=== PATIENT | female | born 1995 | race African-American/Black ===

== ENCOUNTER 2017-01-11 09:11 | Emergency (ER) | payer MEDICAID ==
[2017-01-11 11:01] VITALS: BP 114/78
== END 2017-01-11 10:59 | disposition home or self-care (01) ==
LOC: ED 09:11
DX: J32.9 Chronic sinusitis, unspecified (principal)
CPT/HCPCS: 99282

== ENCOUNTER 2017-07-05 17:38 | Emergency (ER) | payer OTHER ==
[2017-07-05 17:46] VITALS: BP 109/64
--- NOTE | 2017-07-05 18:43 | UC ---
Jarod Dash SooYoung, scribed for Onel Oneal MD on 07/05/17 at 1817 . Complaint Female HPI - HPI Summary HPI Summary: A 21 y/o F presents to [facility] for vaginal bleeding for past week. Initially it was brown, but she states last night it became bright red, and is still present when she last checked an hour ago. Pert PMHx: positive test at [facility] on 06/13, and an ultrasound on 06/20. [facility]: 05/06. She believes she's about 6 weeks . She is taking Fe pills but not pre- vitamins. Denies dizziness, lightheadedness, dysuria, frequency, back pain. She states not having pain previously, but is currently stating mild abd pain at bedside. Bleeding did not soak one pad today. 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 . Delivered at [facility] [place]. - History Of Current Complaint Chief Complaint: UCGU Stated Complaint: PERSONAL Time Seen by Provider: 07/05/17 18:06 Hx Obtained From: Patient ?: Yes Onset/Duration: Lasting Weeks - one week, Still Present Severity Currently: Mild Associated Signs And Symptoms: Positive: Vaginal Bleeding/Discharge Related Hx: - 2, Para - 1 - Allergies/Home Medications Allergies/Adverse Reactions: Allergies Allergy/AdvReac Type Severity Reaction Status Date / Time ENVIRONMENTAL Allergy Mild Congestion Uncoded 12/18/12 06:52 Home Medications: Home Medications Ferrous Sulfate [Fe Tabs] 325 mg PO 07/05/17 [History] PMH/Surg Hx/FS Hx/Imm Hx Previously Healthy: Yes Cardiovascular History: Other Other Cardiovascular History: palpitations Respiratory History: Other Other Respiratory History: neg: asthma - Surgical History Surgical History: None - Family History Known Family History: Positive: Other - neg: anaesthesia reaction - Social History Occupation: Employed Full-time Lives: With Family Alcohol Use: Rare Substance Use Type: Marijuana Substance Use Comment - Amount & Last Used: occasional Smoking Status (MU): Never Smoked Tobacco Review of Systems Constitutional: Negative Skin: Negative Eyes: Negative ENT: Negative Respiratory: Negative Cardiovascular: Negative Gastrointestinal: Abdominal Pain Genitourinary: Other - pos: vaginal bleeding; Motor: Negative Neurovascular: Negative Musculoskeletal: Negative Neurological: Negative Psychological: Negative All Other Systems Reviewed And Are Negative: Yes Physical Exam Triage Information Reviewed: Yes Vital Signs: Initial Vital Signs Temp 98.8 F 07/05/17 17:41 Pulse 79 07/05/17 17:41 Resp 18 07/05/17 17:41 BP 109/64 07/05/17 17:41 Pulse Ox 100 07/05/17 17:41 Vital Signs Reviewed: Yes - Additional Comments The patient is well-nourished in no acute distress and in no acute pain. The skin is warm and dry and skin color reflects adequate perfusion. HEENT: The head is normocephalic and atraumatic. The pupils are equal and reactive. The conjunctivae are clear and without drainage. Nares are patent and without drainage. Mouth reveals moist mucous membranes and the throat is without erythema and exudate. The external ears are intact. The ear canals are patent and without drainage. The tympanic membranes are intact. Neck is supple with full range of motion and non-tender. No adenopathy. There are no carotid bruits. There is no neck vein distension. Respiratory: Chest is non-tender. Lungs are clear to auscultation and breath sounds are symmetrical and equal. Cardiovascular: Heart is regular rate and rhythm. There is no murmur or rub auscultated. There is no peripheral edema and pulses are symmetrical and equal. Abdomen: The abdomen is soft and non-tender. No reproducible pain. No CVA tenderness. There are normal bowel sounds heard in all four quadrants and there is no organomegaly palpated. Musculoskeletal: There is no back pain noted. Extremities are non-tender with full range of motion. There is good capillary refill. There is no peripheral edema or calf tenderness elicited. Neurological: Patient is alert and oriented to person, place and time. The patient has symmetrical motor strength in all four extremities. Cranial nerves are grossly intact. Deep tendon reflexes are symmetrical and equal in all four extremities. Psychiatric: The patient has an appropriate affect and does not exhibit any anxiety or depression. Complaint Female Dx - Course Course Of Treatment: Medications reviewed. Blood pressure is within normal limits, no f/u instructions required. Blood type is A+. Discussed with pt the need for further evaluation at ED due to limited testing available at [facility]. Pt voiced understanding. - Differential Dx/Diagnosis Differential Diagnosis/HQI/PQRI: , Other - threatened miscarriage, first trimester bleeding Provider Diagnoses: 1. . 2. Vaginal bleeding. 3. Threatened miscarriage Discharge - Discharge Plan Condition: Stable Disposition: HOME Patient Education Materials: Threatened Miscarriage (ED), (ED) Referrals: Valerio Francisco MD [Primary Care Provider] - Additional Instructions: Follow up at the Emergency Department. The documentation as recorded by the Jarod zamudio SooYoung accurately reflects the service I personally performed and the decisions made by me, Onel Oneal MD.
== END 2017-07-05 18:20 | disposition home or self-care (01) ==
LOC: UCEAST 17:38
DX: O20.0 Threatened abortion (principal); Z3A.01 Less than 8 weeks gestation of pregnancy
CPT/HCPCS: 99212; G0463

== ENCOUNTER 2017-07-05 18:37 | Emergency (ER) | payer OTHER ==
[2017-07-05 19:47] LABS: Hematocrit 35 % (35-47); Hemoglobin 11.6 g/dl (12.0-16.0); Mean Corpuscular HGB Conc 34 g/dl (31-36); Mean Corpuscular Hemoglobin 29 pg (27-31); Mean Corpuscular Volume 85 fL (80-97); Mean Platelet Volume 7 um3 (7.4-10.4); Red Blood Count 4.06 10^6/ul (4.0-5.4); Red Cell Distribution Width 15 % (10.5-15); White Blood Count 7.8 10^3/ul (3.5-10.8)
[2017-07-05 20:03] LABS: Albumin 4.2 g/dL (3.2-5.2); BUN/Creatinine Ratio 18.6 (8-20); Calcium 9.3 mg/dL (8.6-10.3); EGFR African American 134.6 (>60); EGFR Non-African American 104.6 (>60); Potassium 3.7 mmol/L (3.5-5.0); Total Bilirubin 0.2 mg/dL (0.2-1.0); Total Protein 7.2 g/dL (6.4-8.9)
--- NOTE | 2017-07-05 20:09 | ED ---
- HPI Summary HPI Summary: 21F at 6 weeks LMP 05/06 presents with vaginal spotting since last night. States has been having brown discharge for a week. She had ultrasound on . She denies dizziness, lightheadedness, dysuria, frequency, back pain, n/v/d /c. she has abdominal cramping that started today that is mild. She has not taken anything for pain. She has sickle cell trait. She denies any history of STDs. She does not have an obgyn currently. - History of Current Complaint Chief Complaint: EDVaginalBleeding Stated Complaint: 6 WKS PREG/CRAMPING AND BLEEDING Time Seen by Provider: 07/05/17 19:13 Pain Intensity: 5 - Assessment Hx Now: Yes Hx Hysterectomy: No - Allergies/Home Medications Allergies/Adverse Reactions: Allergies Allergy/AdvReac Type Severity Reaction Status Date / Time ENVIRONMENTAL Allergy Mild Congestion Uncoded 12/18/12 06:52 PMH/Surg Hx/FS Hx/Imm Hx Endocrine/Hematology History: Reports: Hx Sickle Cell Disease - SICKLE CELL TRAIT Respiratory History: Denies: Hx Asthma, Hx Pneumonia, Hx Seasonal Allergies Sensory History: Denies: Hx Contacts or Glasses, Hx Hearing Aid Opthamlomology History: Denies: Hx Contacts or Glasses - Immunization History Date of Tetanus Vaccine: UNKNOWN Date of Influenza Vaccine: NO Infectious Disease History: No Infectious Disease History: Denies: Traveled Outside the [place] in Last 30 Days - Family History Known Family History: Positive: None, Blood Disorder - sickle cell trait - Social History Alcohol Use: Rare Hx Substance Use: Yes Substance Use Type: Reports: Marijuana Substance Use Comment - Amount & Last Used: occasional Hx Tobacco Use: No Smoking Status (MU): Never Smoked Tobacco Review of Systems Negative: Fever Negative: Chest Pain Negative: Shortness Of Breath Positive: Other - vaginal bleeding All Other Systems Reviewed And Are Negative: Yes Physical Exam - Physical Exam Triage Information Reviewed: Yes Vital Signs Reviewed: Yes Appearance: Positive: Well-Appearing Skin: Positive: Warm, Dry Head/Face: Positive: Normal Head/Face Inspection Eyes: Positive: Normal, EOMI, MARTELL, Conjunctiva Clear ENT: Positive: Normal ENT inspection, Pharynx normal, TMs normal Respiratory/Lung Sounds: Positive: Clear to Auscultation, Breath Sounds Present Cardiovascular: Positive: Normal, RRR Abdomen Description: Positive: Nontender, Soft Bowel Sounds: Positive: Present Diagnostics - Vital Signs Vital Signs Temp Pulse Resp BP Pulse Ox 07/05/17 19:43 98.2 F 92 20 125/79 99 07/05/17 18:42 98.2 F 92 20 125/79 100 - Laboratory Lab Results: Lab Results 07/05/17 07/05/17 07/05/17 Range/Units 19:39 19:39 19:39 WBC 7.8 (3.5-10.8) 10^3/ul RBC 4.06 (4.0-5.4) 10^6/ul Hgb 11.6 L (12.0-16.0) g/dl Hct 35 (35-47) % MCV 85 (80-97) fL MCH 29 (27-31) pg MCHC 34 (31-36) g/dl RDW 15 (10.5-15) % Plt Count 322 (150-450) 10^3/ul MPV 7 L (7.4-10.4) um3 Neut % (Auto) 69.5 (38-83) % Lymph % (Auto) 18.3 L (25-47) % [place] % (Auto) 9.1 H (1-9) % Eos % (Auto) 1.7 (0-6) % Baso % (Auto) 1.4 (0-2) % Absolute Neuts (auto) 5.4 (1.5-7.7) 10^3/ul Absolute Lymphs (auto) 1.4 (1.0-4.8) 10^3/ul Absolute Monos (auto) 0.7 (0-0.8) 10^3/ul Absolute Eos (auto) 0.1 (0-0.6) 10^3/ul Absolute Basos (auto) 0.1 (0-0.2) 10^3/ul Absolute Nucleated RBC 0 10^3/ul Nucleated RBC % 0 INR (Anticoag Therapy) 0.99 (0.89-1.11) APTT 30.1 (26.0-36.3) seconds Sodium 133 (133-145) mmol/L Potassium 3.7 (3.5-5.0) mmol/L Chloride 103 (101-111) mmol/L Carbon Dioxide 25 (22-32) mmol/L Anion Gap 5 (2-11) mmol/L BUN 13 (6-24) mg/dL Creatinine 0.70 (0.51-0.95) mg/dL Est GFR ( Amer) 134.6 (>60) Est GFR (Non-Af Amer) 104.6 (>60) BUN/Creatinine Ratio 18.6 (8-20) Glucose 79 (70-100) mg/dL Calcium 9.3 (8.6-10.3) mg/dL Total Bilirubin 0.20 (0.2-1.0) mg/dL AST 12 L (13-39) U/L ALT 7 (7-52) U/L Alkaline Phosphatase 36 (34-104) U/L Total Protein 7.2 (6.4-8.9) g/dL Albumin 4.2 (3.2-5.2) g/dL Globulin 3.0 (2-4) g/dL Albumin/Globulin Ratio 1.4 (1-3) Beta HCG, Quant Pending Result Diagrams: 07/05/17 19:39 07/05/17 19:39 Lab Statement: Any lab studies that have been ordered have been reviewed, and results considered in the medical decision making process. - Ultrasound No standard instances Ultrasound Interpretation: Positive (See Comments) - IMPRESSION: Empty gestational sac with no evidence of pole likely representing a blighted. Ultrasound Interpretation Completed By: Radiologist Course/Dx - Course Course Of Treatment: 21F at 6 weeks LMP 05/06 presents with vaginal spotting since last night. States has been having brown discharge for a week. She had ultrasound on 06/20. She denies dizziness, lightheadedness, dysuria, frequency, back pain, n/v/d/c. she has abdominal cramping that started today that is mild. She has not taken anything for pain. She has sickle cell trait. She denies any history of STDs. on exam abd nontender. u/s shows no pole so likely miscarriage. told to patient to follow up with obgyn. patient advised to return if develops fever. patient understands and agrees with plan. - Differential Diagnosis/HQI/PQRI: Incomplete , Spontaneous , Threatened - Diagnoses Provider Diagnoses: Vaginal bleeding, Blighted ovum Discharge - Discharge Plan Condition: Good Disposition: HOME Patient Education Materials: Miscarriage (ED) Forms: *Work Release Referrals: Valerio Francisco MD [Primary Care Provider] - Sirisha Colón MD [Medical Doctor] - Additional Instructions: U/S shows no pole so likely having a miscarriage, will continue to bleed Follow up with obgyn as soon as possible Return to ED if develop any new or worsening symptoms
--- NOTE | 2017-07-05 21:39 | RAD ---
Indication: Vaginal bleeding. Real-time sonography of the was performed. There is no evidence of a pole. There is an intrauterine gestational sac measuring 16 mm corresponding to gestational age of 6 weeks 3 days. The right ovary measures 4.7 x 1.1 x 2.6 cm. Left ovary measures 2.7 x 1.8 x 4.6 cm. IMPRESSION: Empty gestational sac with no evidence of pole likely representing a blighted.
[2017-07-05 21:58] LABS: Urine Bacteria Absent (Absent); Urine Bilirubin Negative (Negative); Urine Glucose Negative (Negative); Urine Nitrite Negative (Negative)
[2017-07-05 22:09] VITALS: BP 123/71
== END 2017-07-05 22:08 | disposition home or self-care (01) ==
LOC: ED 18:37
DX: O46.91 Antepartum hemorrhage, unspecified, first trimester (principal); O02.0 Blighted ovum and nonhydatidiform mole; Z3A.01 Less than 8 weeks gestation of pregnancy
CPT/HCPCS: 36415; 76817; 80053; 81003; 81015; 84702; 85025; 85610; 85730; 99282

== ENCOUNTER 2017-09-20 16:50 | Emergency (ER) | payer OTHER ==
[2017-09-20 17:20] VITALS: BP 111/65
--- NOTE | 2017-09-20 17:38 | UC ---
Respiratory Complaint HPI - HPI Summary HPI Summary: 3 DAYS OF COUGH, CONGESTION, ST, RIGHT EAR PRESSURE. ST SINCE LAST NIGHT. NO FEVER. HAS THROBBING RIGHT SIDED LUNA WITH PHOTOPHOBIA AND MILD NAUSEA. - History of Current Complaint Chief Complaint: UCGeneralIllness Stated Complaint: COLD Time Seen by Provider: 09/20/17 17:10 Hx Obtained From: Patient Hx Last Menstrual Period: 08/25/17 Onset/Duration: Gradual Onset, Lasting Days, Still Present Timing: Constant Severity Initially: Moderate Severity Currently: Moderate Pain Intensity: 7 Pain Scale Used: 0-10 Numeric Character: Cough: Nonproductive Aggravating Factors: Nothing Alleviating Factors: Nothing Associated Signs And Symptoms: Positive: URI, Nasal Congestion, Hoarseness. Negative: Dyspnea, Fever, Chills, Pleuritic Chest Pain, Wheezing, Hemoptysis - Allergies/Home Medications Allergies/Adverse Reactions: Allergies Allergy/AdvReac Type Severity Reaction Status Date / Time ENVIRONMENTAL Allergy Mild Congestion Uncoded 09/20/17 17:20 PMH/Surg Hx/FS Hx/Imm Hx Neurological History: Migraine - Surgical History Surgical History: Yes Surgery Procedure, Year, and Place: back surgery, hernia repair. - Family History Known Family History: Positive: Blood Disorder - sickle cell trait Negative: Hypertension - Social History Alcohol Use: Rare Substance Use Type: Marijuana Substance Use Comment - Amount & Last Used: occasional Smoking Status (MU): Never Smoked Tobacco Review of Systems Constitutional: Negative ENT: Sore Throat, Ear Ache, Nasal Discharge Respiratory: Cough Cardiovascular: Negative Gastrointestinal: Nausea Neurological: Headache All Other Systems Reviewed And Are Negative: Yes Physical Exam Triage Information Reviewed: Yes Appearance: Well-Appearing, No Pain Distress, Well-Nourished Vital Signs: Initial Vital Signs Temp 97.9 F 09/20/17 17:16 Pulse 91 09/20/17 17:16 Resp 18 09/20/17 17:16 BP 111/65 09/20/17 17:16 Pulse Ox 100 09/20/17 17:16 Vital Signs Reviewed: Yes Eyes: Positive: Conjunctiva Clear ENT: Positive: Hearing grossly normal, Pharynx normal, TMs normal Neck: Positive: Supple, Nontender, No Lymphadenopathy Respiratory Exam: Normal Cardiovascular Exam: Normal Abdomen Description: Positive: Soft Musculoskeletal: Positive: No Edema Neurological: Positive: Alert Psychological: Positive: Age Appropriate Behavior Skin: Negative: rashes UC Diagnostic Evaluation - Laboratory O2 Sat by Pulse Oximetry: 100 Respiratory Course/Dx - Differential Dx/Diagnosis Provider Diagnoses: 1. ACUTE URI. 2. MIGRAINE Discharge - Discharge Plan Condition: Stable Disposition: HOME Prescriptions: Ibuprofen TAB* [Motrin TAB* 800 MG] 800 mg PO Q8H PRN #30 tab PRN Reason: Pain Patient Education Materials: Migraine Headache (ED), Upper Respiratory Infection (ED) Referrals: Valerio Francisco MD [Primary Care Provider] - If Needed Additional Instructions: YOUR SYMPTOMS ARE LIKELY VIRALLY MEDIATED AND SHOULD RESOLVE ON THEIR OWN WITH TIME. REST, HYDRATE, ERX FOR IBUPROFEN SENT TO [facility]. SEEK FOLLOW-UP IF YOU ARE NOT IMPROVING OVER THE NEXT 1-2 WEEKS.
== END 2017-09-20 18:27 | disposition home or self-care (01) ==
LOC: UCEAST 16:50
DX: J06.9 Acute upper respiratory infection, unspecified (principal); G43.909 Migraine, unspecified, not intractable, without status migrainosus
CPT/HCPCS: 99212; G0463

== ENCOUNTER 2018-05-14 15:13 | Emergency (ER) | payer OTHER ==
[2018-05-14 15:31] VITALS: BP 116/82
--- NOTE | 2018-05-14 15:36 | UC ---
Back Pain HPI - HPI Summary HPI Summary: Patient with history of scoliosis presents with increasing left low back pain over the past 2 weeks. No acute injury. No loss of bowel or bladder control. No saddle anesthesia. - History of Current Complaint Chief Complaint: UCBackPain Stated Complaint: BACK PAIN Time Seen by Provider: 05/14/18 15:31 Hx Obtained From: Patient Hx Last Menstrual Period: 04/12/18 Onset/Duration: Gradual Onset, Lasting Weeks, Still Present Timing: Constant Severity Initially: Moderate Severity Currently: Moderate Pain Intensity: 10 - WALKED INTO ROOM AND IS SITTING IN NO DISTRESS Pain Scale Used: 0-10 Numeric Character: Sharp Aggravating Factor(s): Movement Alleviating Factor(s): Rest Associated Signs And Symptoms: Negative: Swelling, Redness, Bruising, Weakness, Numbness, Tingling, Bladder Incontinence, Bowel Incontinence - Allergies/Home Medications Allergies/Adverse Reactions: Allergies Allergy/AdvReac Type Severity Reaction Status Date / Time ENVIRONMENTAL Allergy Mild Congestion Uncoded 05/14/18 15:28 PMH/Surg Hx/FS Hx/Imm Hx - Additional Past Medical History Additional PMH: SCOLIOSIS Neurological History: Migraine - Surgical History Surgical History: Yes Surgery Procedure, Year, and Place: back surgery, hernia repair. - Family History Known Family History: Positive: Blood Disorder - sickle cell trait Negative: Hypertension - Social History Alcohol Use: Occasionally Substance Use Type: Marijuana Substance Use Comment - Amount & Last Used: occasional Smoking Status (MU): Former Smoker Review of Systems Constitutional: Negative Skin: Negative Respiratory: Negative Cardiovascular: Negative Gastrointestinal: Negative Musculoskeletal: Arthralgia, Myalgia All Other Systems Reviewed And Are Negative: Yes Physical Exam Triage Information Reviewed: Yes Appearance: Well-Appearing, No Pain Distress, Well-Nourished Vital Signs: Initial Vital Signs Temp 98.4 F 05/14/18 15:23 Pulse 77 05/14/18 15:23 Resp 18 05/14/18 15:23 BP 116/82 05/14/18 15:23 Pulse Ox 98 05/14/18 15:23 Vital Signs Reviewed: Yes Eyes: Positive: Conjunctiva Clear ENT: Positive: Hearing grossly normal - [employer] account number over the phone as opposed to alleviate used to write that on and the person's name is indicated exhibit is adding that you have to verbally stated account number White acute symptoms Neck: Positive: Supple Respiratory: Positive: No respiratory distress, No accessory muscle use Cardiovascular: Positive: Pulses Normal Abdomen Description: Positive: Soft Musculoskeletal: Positive: ROM Intact, No Edema, Other: - MILDLY TENDER LEFT LUMBAR PARASPINOUS MUSCLES Neurological: Positive: Alert Psychological: Positive: Age Appropriate Behavior Skin: Negative: rashes Back Pain Course/Dx - Differential Dx/Diagnosis Provider Diagnoses: ACUTE LOW BACK STRAIN Discharge - Sign-Out/Discharge Documenting (check all that apply): Patient Departure - Discharge Plan Condition: Stable Disposition: HOME Prescriptions: Cyclobenzaprine TAB* [Flexeril TAB*] 10 mg PO BID PRN #30 tab PRN Reason: Pain Naproxen [Naproxen EC] 500 mg PO BID PRN #30 tab PRN Reason: Pain Patient Education Materials: Low Back Strain (ED) Referrals: Valerio Francisco MD [Primary Care Provider] - If Needed Additional Instructions: YOU NEED TO FOLLOW-UP WITH A PCP OR WITH THE [facility]INE [facility] FOR RE-EVALUATION OF YOUR SCOLIOSIS. BE SURE TO GO THROUGH SLOW RANGE OF MOTION AND STRETCHING EXERCISES DAILY YOU ARE ABLE TO PREVENT STIFFENING UP AND MAKING THE DISCOMFORT WORSE. [facility] [address] [place], [place] [id number] CALL THE NUMBER BELOW FOR ASSISTANCE IN ESTABLISHING WITH A PCP An additional resource available to assist in finding the appropriate physician for your health care needs is the [facility]erral [facility] ([facility]). You may contact them by calling [phone]. GO TO THE ED WITHOUT FAIL IF YOU DEVELOP WORSENING PAIN, NUMBNESS, TINGLING, LOSS OF BOWEL/BLADDER CONTROL OR ANY OTHER CONCERNING SYMPTOMS. - Billing Disposition and Condition Condition: STABLE Disposition: Home
== END 2018-05-14 16:05 | disposition home or self-care (01) ==
LOC: UCEAST 15:13
DX: S39.012A Strain of muscle, fascia and tendon of lower back, initial encounter (principal); Z91.09 Other allergy status, other than to drugs and biological substances; Z87.898 Personal history of other specified conditions; Z87.891 Personal history of nicotine dependence; X58.XXXA Exposure to other specified factors, initial encounter; Y92.9 Unspecified place or not applicable
CPT/HCPCS: 81003; 99212; G0463

== ENCOUNTER 2018-11-24 10:49 | Emergency (ER) | payer OTHER ==
[2018-11-24 10:58] VITALS: BP 110/74
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
== END 2018-11-24 12:15 | disposition home or self-care (01) ==
LOC: UCEAST 10:49
DX: S09.92XA Unspecified injury of nose, initial encounter (principal); W50.0XXA Accidental hit or strike by another person, initial encounter; Y92.9 Unspecified place or not applicable; Z87.891 Personal history of nicotine dependence
CPT/HCPCS: 70160; 99212; G0463

== ENCOUNTER 2019-10-06 14:32 | Emergency (ER) | payer OTHER ==
[2019-10-06 15:15] VITALS: BP 103/71
--- NOTE | 2019-10-06 16:28 | UC ---
Back Pain HPI - HPI Summary HPI Summary: Patient is a 23-year-old female presenting with mid back pain since last night after she was cleaning at work and believes she strained her back. Denies direct injury or trauma. Patient does note that she has a history of scoliosis since childhood and has chronic back pain. States that pain is worse now and feels very tight. States worse with movement and walking and better with lying down. Denies numbness and tingling. Denies radiating pain. Denies incontinence. Patient states she was in PT earlier this year for her back pain from scoliosis but the pain never fully resolved. States that she was given order for outpatient back x-ray one month ago by her primary care but never followed up on it. Patient also states that she took a muscle relaxant last night that put her to sleep but did not seem to help much with the pain overall. - History of Current Complaint Chief Complaint: UCBackPain Stated Complaint: BACKPAIN Hx Obtained From: Patient Hx Last Menstrual Period: 09/12/2019 Onset/Duration: Sudden Onset Timing: Constant Severity Currently: Severe Pain Intensity: 10 Pain Scale Used: 0-10 Numeric - Allergies/Home Medications Allergies/Adverse Reactions: Allergies Allergy/AdvReac Type Severity Reaction Status Date / Time ENVIRONMENTAL Allergy Mild Congestion Uncoded 10/06/19 15:08 Home Medications: Home Medications Cyclobenzaprine (NF) [Cyclobenzaprine 5 MG (NF)] 5 mg PO TID PRN 10/06/19 [ History Confirmed 10/06/19] Meloxicam [Mobic] 7.5 mg PO BID 10/06/19 [History Confirmed 10/06/19] PMH/Surg Hx/FS Hx/Imm Hx - Surgical History Surgical History: Yes Surgery Procedure, Year, and Place: hernia repair. surgery to neck s/p wound - Family History Known Family History: Positive: Blood Disorder - sickle cell trait , Non- Contributory Negative: Hypertension - Social History Occupation: Employed Full-time Alcohol Use: Occasionally Substance Use Type: Marijuana Substance Use Comment - Amount & Last Used: occasional Smoking Status (MU): Former Smoker Review of Systems All Other Systems Reviewed And Are Negative: Yes Constitutional: Positive: Negative Respiratory: Positive: Negative Cardiovascular: Positive: Negative Gastrointestinal: Positive: Negative Motor: Positive: Negative. Negative: Decreased ROM, Weakness Musculoskeletal: Positive: Arthralgia - mid back pain, Myalgia - muscle tightness in back. Negative: Decreased ROM, Edema Neurological: Negative: Paresthesia, Numbness Physical Exam Triage Information Reviewed: Yes Appearance: Well-Appearing, No Pain Distress, Well-Nourished Vital Signs: Initial Vital Signs Temp 99.2 F 10/06/19 15:10 Pulse 51 10/06/19 15:10 Resp 18 10/06/19 15:10 BP 103/71 10/06/19 15:10 Pulse Ox 99 10/06/19 15:10 Vital Signs Reviewed: Yes Eyes: Positive: Conjunctiva Clear ENT: Positive: Hearing grossly normal Neck exam: Normal Neck: Positive: Supple, Nontender Respiratory Exam: Normal Respiratory: Positive: Lungs clear, Normal breath sounds, No respiratory distress, No accessory muscle use Cardiovascular Exam: Normal Cardiovascular: Positive: RRR Musculoskeletal: Positive: Strength Intact, ROM Intact, No Edema, Other: - tenderness to palpation of paraspinous muscles of thoracic back. slower gait, but normal Neurological Exam: Other - Sensation grossly intact Neurological: Positive: Alert Psychological: Positive: Age Appropriate Behavior Skin Exam: Normal - no erythema or ecchymosis Diagnostics - Radiology T spine Radiology Interpretation Completed By: Radiologist Summary of Radiographic Findings: Report: 23 degrees Jhaveri angle RIGHT convex curve is measured between T9 and L3. Reversal of the curve extending proximal. Negative for spondylolisthesis at any level. Negative for fracture or focal osseous lesions. Clear visualized lungs and pleural spaces. The heart, pulmonary vasculature, and mediastinal contours are unremarkable. IMPRESSION: # . No significant change in magnitude of thoracolumbar dextroscoliosis. No acute abnormality evident. Back Pain Course/Dx - Course Course Of Treatment: Discussed no acute findings on x-ray with patient. Discussed probable back strain and to continue with symptomatic treatment including use of her prescribed Flexeril. Instructed to follow up with PCP if pain persists as it may be more related to her scoliosis. Instructed to go to ED with new or worsening symptoms. Patient voiced understanding and agreed with treatment plan. - Differential Dx/Diagnosis Differential Diagnosis/HQI/PQRI: Herniated Disc Provider Diagnosis: Strain of thoracic back region Discharge ED - Sign-Out/Discharge Documenting (check all that apply): Patient Departure All imaging exams completed and their final reports reviewed: Yes - Discharge Plan Condition: Stable Disposition: HOME Patient Education Materials: Thoracic Back Strain (ED) Forms: *Work Release Referrals: Valerio Francisco MD [Primary Care Provider] - If Needed Additional Instructions: As discussed, your xrays did not show any fractures. You may continue to take your Flexeril as prescribed for muscle spasms. Rest, ice, heat, and take ibuprofen as directed to help alleviate pain symptoms. Refrain from strenuous physical activity until pain has resolved. Mild stretching may help alleviate pain. Follow up with your PCP if pain persists. - Billing Disposition and Condition Condition: STABLE Disposition: Home
== END 2019-10-06 17:40 | disposition home or self-care (01) ==
LOC: UCEAST 14:32
DX: S29.012A Strain of muscle and tendon of back wall of thorax, initial encounter (principal); M41.9 Scoliosis, unspecified; G89.29 Other chronic pain; Z91.09 Other allergy status, other than to drugs and biological substances; Z87.891 Personal history of nicotine dependence; X58.XXXA Exposure to other specified factors, initial encounter; Y93.89 Activity, other specified; Y92.9 Unspecified place or not applicable; Y99.0 Civilian activity done for income or pay
CPT/HCPCS: 72070; 99211; G0463

== ENCOUNTER 2022-08-08 06:07 | Inpatient (IN) ==
[2022-08-08] MEDS ORDERED: Buffered Lidocaine 1% SYRIN 1 ml INTRADERM ONE (07:58)
[2022-08-08] MEDS ORDERED: Lactated Ringers 1000 ml BAG 1,000 ML IV ONE (07:58)
[2022-08-08] MEDS ORDERED: Lactated Ringers 1000 ml BAG 1,000 ML IV SCH ×2 (08:00→11:00)
[2022-08-08 09:34] LABS: ABS Basophils 0.1 10^3/ul (0-0.2); ABS Lymphocytes 1.2 10^3/ul (1.0-4.8); ABS Monocytes 0.8 10^3/ul (0-0.8); ABS Neutrophils 7.8 10^3/ul (1.5-7.7); Eosinophil % 0.2 %; Hematocrit 30 % (35-47); Hemoglobin 10.2 g/dL (12.0-16.0); Lymphocyte % 11.8 %; Mean Corpuscular HGB Conc 34 g/dL (31-36); Mean Corpuscular Hemoglobin 29 pg (27-31); Mean Corpuscular Volume 85 fL (80-97); Mean Platelet Volume 7.3 fL (7.4-10.4); Nucleated Red Blood Cells % 0.2; Platelet Count 334 10^3/uL (150-450); Red Blood Count 3.51 10^6 /uL (3.70-4.87); Red Cell Distribution Width 14 % (10-15); White Blood Count 9.9 10^3/uL (3.5-10.8)
[2022-08-08 09:56] LABS: Urine Benzodiazepine Screen None Detected (None Detect); Urine Cannabinoids Screen None Detected (None Detect); Urine Opiates Screen None Detected (None Detect)
[2022-08-08] MEDS ORDERED: Oxytocin in LR 20,000 MILLI.UNIT/1,000 ML BAG IV ONE (10:07)
[2022-08-08] MEDS ORDERED: Glycerin ADULT 2.4 gm SUPP PR PRN (10:16)
[2022-08-08] MEDS ORDERED: Witch Hazel PAD JAR TOPICAL PRN (10:16)
[2022-08-08] MEDS ORDERED: Oxytocin in LR 20,000 MILLI.UNIT/1,000 ML BAG IV SCH (10:30)
[2022-08-08] MEDS: Dibucaine 1% OINT 28.35 GM TUBE PR PRN ×2 (11:33→20:26)
[2022-08-09 06:38] LABS: ABS Basophils 0.1 10^3/ul (0-0.2); ABS Lymphocytes 1.5 10^3/ul (1.0-4.8); ABS Monocytes 0.8 10^3/ul (0-0.8); ABS Neutrophils 9.1 10^3/ul (1.5-7.7); Eosinophil % 0.3 %; Hematocrit 27 % (35-47); Hemoglobin 8.9 g/dL (12.0-16.0); Lymphocyte % 12.8 %; Mean Corpuscular HGB Conc 34 g/dL (31-36); Mean Corpuscular Hemoglobin 29 pg (27-31); Mean Corpuscular Volume 86 fL (80-97); Mean Platelet Volume 7.2 fL (7.4-10.4); Nucleated Red Blood Cells % 0.1; Platelet Count 296 10^3/uL (150-450); Red Blood Count 3.11 10^6 /uL (3.70-4.87); Red Cell Distribution Width 14 % (10-15); White Blood Count 11.5 10^3/uL (3.5-10.8)
[2022-08-10 09:31] VITALS: BP 112/80
== END 2022-08-10 14:45 | disposition home or self-care (01) | DRG 560 ==
LOC: MCHOBOUT 06:07 → MCHOB 07:59
PROVIDERS: ADMIT Midwife; ATTEND Midwife